=== PATIENT | female | born 1990 | race Caucasian/White ===

== ENCOUNTER 2018-09-14 09:02 | Emergency (ER) | payer MEDICAID ==
[~2018-09-14] VITALS: Ht 170.2 cm; Wt 100.7 kg
[2018-09-14 09:20] VITALS: BP 129/84
[2018-09-14] MEDS ORDERED: AMOX-580 PO (09:58)
== END 2018-09-14 10:17 | disposition home or self-care (01) ==
LOC: ER 09:03
DX: J22 Unspecified acute lower respiratory infection (principal); Z98.51 Tubal ligation status
CPT/HCPCS: 99283